=== PATIENT | female | born 1940 | race Caucasian/White ===

== ENCOUNTER 2016-08-26 08:53 | Day surgery (SDC) | payer MEDICARE, BC ==
[~2016-08-26 08:53] MED LIST: Lactated Ringers 1,000 ML IV SCH; Sodium Chloride 0.9% 10 ML Syringe FLUSH PRN
[2016-08-26] MEDS ORDERED: Propofol 200 MG/20 ML SDV ONE ×2 (09:55→09:56)
[2016-08-26] MEDS ORDERED: Midazolam 1 MG/ML 2 ML SDV ONE ×2 (09:55→09:56)
--- NOTE | 2016-08-26 10:00 | PCM.PN ---
- General Info Date of Service: 08/26/16 - Review of Systems Systems Review Comment:: 76-year-old female referred by Mita Michaels for colonoscopy. This patient has been having a change in bowel habits with some diarrhea. Her last colonoscopy was almost 10 years ago. She is medically stable to proceed today with no significant recent change in her health status. Her recent history and physical is reviewed and no changes are noted. I discussed the proposed colonoscopy with the patient. Risks such as but not limited to bleeding and GI injury or discussed. She appears to understand and agrees to proceed. - Patient Data Vitals - most recent: Last Vital Signs Temp 97.5 F 08/26/16 09:35 Pulse 57 L 08/26/16 09:35 Resp 16 08/26/16 09:35 BP 122/52 L 08/26/16 09:35 Pulse Ox 100 08/26/16 09:35 Weight - most recent: 83.915 kg Med Orders - Current: Current Medications Lactated Ringer's (Ringers, Lactated) 1,000 mls @ 125 mls/hr IV ASDIRECTED LESLIE Last Admin: 08/26/16 09:55 Dose: 125 mls/hr Sodium Chloride (Saline Flush) 10 ml FLUSH ASDIRECTED PRN PRN Reason: Keep Vein Open - Problem List Review Problem List Initiated/Reviewed/Updated: Yes - Assessment Assessment:: Change in Bowel Habits - Plan Plan:: Colonoscopy
--- NOTE | 2016-08-26 10:35 | PCM.OPNOTE ---
- General Post-Op/Procedure Note Date of Surgery/Procedure: 08/26/16 Operative Procedure(s): Colonoscopy with Biopsy Findings: Moderate Sigmoid Diverticulosis Moderate Anal Stenosis Pre Op Diagnosis: Change in Bowel Habits Post-Op Diagnosis: Diverticulosis Anesthesia Technique: MAC Primary Surgeon: Justus Jay Pathology: Random biopsies of Colon Output, Urine Amount: 0 EBL in mLs: 2 Complications: None Condition: Good
--- NOTE | 2016-08-26 11:41 | OR ---
Date of Procedure: 08/26/2016 PREOPERATIVE DIAGNOSIS: Change in bowel habits. POSTOPERATIVE DIAGNOSIS: Diverticulosis. OPERATION PERFORMED: Colonoscopy with biopsy. INDICATIONS FOR SURGERY: This is a 76-year-old female, who has noted a change in her bowel pattern recently with increased loose and diarrhea stools. It has been several years since her last colonoscopy and she is referred for this exam. FINDINGS: The patient has a moderate degree of sigmoid diverticulosis. This does not appear to be acutely inflamed or otherwise complicated. The remainder of the colon mucosa appears normal. The patient does have a [id number] anal stenosis, but no mass or other lesion was noted in this area. PROCEDURE: The patient was taken to the operating room. She was given intravenous sedation and with her in the left lateral decubitus position, digital rectal exam was performed showing no rectal masses. This was somewhat limited because of moderate degree of stenosis of the anal canal. The Olympus colonoscope was inserted into the rectum. Retroflexed examination of the rectal canal was performed. The scope was then carefully advanced under direct visualization through the entire length of the colon until the cecum was reached. Cecal acquisition was confirmed by noting the normal internal cecal anatomy including the appendiceal orifice and ileocecal valve. The light was also noted to transilluminate the abdominal wall and the right lower quadrant. After examining the cecum, the scope was slowly withdrawn, sequentially re- examining the colonic segments. During withdrawal of the scope, random biopsies were taken of the right and left colon to evaluate for possible microcytic colitis. After the exam had been completed and with no sign of any complication, the scope was removed and the patient was taken from the operating room in satisfactory condition. ESTIMATED BLOOD LOSS: 2 mL. COMPLICATIONS: None. PROGNOSIS: Good. JESSICA Jay MD /[id number]
[2016-08-26 13:37] VITALS: BP 102/56
== END 2016-08-26 11:50 | disposition home or self-care (01) ==
LOC: LL.SDS 08:53
PROVIDERS: ATTEND Surgery
DX: K63.89 Other specified diseases of intestine (principal); K62.4 Stenosis of anus and rectum; Z88.1 Allergy status to other antibiotic agents; Z88.8 Allergy status to other drugs, medicaments and biological substances; I10 Essential (primary) hypertension; E11.9 Type 2 diabetes mellitus without complications; E78.5 Hyperlipidemia, unspecified; F41.9 Anxiety disorder, unspecified; Z96.653 Presence of artificial knee joint, bilateral; Z79.82 Long term (current) use of aspirin; Z79.899 Other long term (current) drug therapy
CPT/HCPCS: 00810; 45380; J2250; J2704; J7050; J7120; 88305

== ENCOUNTER 2018-10-21 18:42 | Emergency (ER) | payer MEDICARE, BC ==
[2018-10-21 19:00] VITALS: BP 153/74; PULSE 72
[2018-10-21 19:49] LABS: CHLORIDE,CL 101 mmol/L (98-107); SODIUM,NA 138 mmol/L (136-145)
--- NOTE | 2018-10-21 20:19 | EDM.PDOC ---
ED HPI GENERAL MEDICAL PROBLEM - General Chief Complaint: Upper Extremity Injury/Pain Stated Complaint: Left Shoulder Time Seen by Provider: 10/21/18 18:55 Source of Information: Reports: Patient, Family History Limitations: Reports: No Limitations - History of Present Illness INITIAL COMMENTS - FREE TEXT/NARRATIVE: Recent is a 78 who is seen with one week history of left shoulder pain and neck pain she says that she saw a chiropractor twice last week and now she has some left shoulder pain and weakness and neck pain radiating to the shoulder patient has history of arthritis Onset: Gradual Duration: Day(s):, Getting Worse Location: Reports: Neck, Upper Extremity, Left Quality: Reports: Ache, Throbbing Severity: Moderate Improves with: Reports: Rest, Other (Massage) Context: Reports: Activity, Lifting Associated Symptoms: Reports: No Other Symptoms 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 Left Shoulder Pain Score (Numeric/FACES): 10 - Related Data Allergies Allergy/AdvReac Type Severity Reaction Status Date / Time ciprofloxacin [From Cipro] Allergy STOMACH Verified 10/21/18 18:53 AND LEG PAIN demeclocycline Allergy UNKNOWN Verified 10/21/18 18:53 diclofenac Allergy UNKNOWN Verified 10/21/18 18:53 etodolac [From Lodine] Allergy Hypertensio Verified 10/21/18 18:53 n ibuprofen [From Advil] Allergy Drowsiness Verified 10/21/18 18:53 indomethacin [From Indocin] Allergy Hypertensio Verified 10/21/18 18:53 n indomethacin sodium Allergy Hypertensio Verified 10/21/18 18:53 [From Indocin] n metronidazole Allergy Abdominal Verified 10/21/18 18:53 Pain moxifloxacin [From Avelox] Allergy UNKNOWN Verified 10/21/18 18:53 naproxen sodium [From Aleve] Allergy Abdominal Verified 10/21/18 18:53 Pain omeprazole [From Prilosec] Allergy Tachycardia Verified 10/21/18 18:53 raloxifene [From Evista] Allergy Joint Pain Verified 10/21/18 18:53 tramadol [From Ultracet] Allergy Itching Verified 10/21/18 18:53 nabumetone [From Relafen] AdvReac Insomnia Verified 10/21/18 18:53 Home Meds: Home Meds ALPRAZolam [Xanax] 1 tab PO BEDTIME 08/30/14 [History] Ascorbate Calcium [Vitamin C] 500 mg PO ACBREAKFAST 08/30/14 [History] Ascorbic Acid [Vitamin C] 1,000 mg PO DAILY@1200 08/30/14 [History] Aspirin [Lite Coat Aspirin] 325 mg PO QPM 08/30/14 [History] Hydrochlorothiazide/Lisinopril [Lisinopril/HCTZ 20-12.5 MG] 0.5 tab PO BID 08/30 [History] Hydrocortisone 1 tab PO DAILY PRN 08/30/14 [History] Krill Oil 500 mg PO DAILY 08/30/14 [History] Magnesium 400 mg PO BID 08/30/14 [History] Metoprolol Tartrate [Lopressor] 150 mg PO BID 08/30/14 [History] Vitamin B Complex 1 each PO DAILY 08/30/14 [History] metFORMIN [Glucophage XR] 500 tab PO BID 08/30/14 [History] traMADol [Ultram] 50 mg PO BEDTIME 08/30/14 [History] Acetaminophen [Tylenol Arthritis] 650 mg PO BID PRN 08/25/16 [History] Clotrimazole/Betamethasone Dip [Lotrisone Cream] 1 applic TOP ASDIRECTED PRN 10/04 [History] Gabapentin 300 mg PO BID 08/25/16 [History] Non-Formulary Medication [NF Drug] 2 tab PO DAILY 08/25/16 [History] Triamcinolone Acetonide 1 applic TOP ASDIRECTED PRN 08/25/16 [History] Ubidecarenone [Co Q-10] 200 mg PO DAILY 08/25/16 [History] Lecithin [Gram-O-Leci] 1,000 mg PO DAILY 08/26/16 [History] Lutein 20 mg PO DAILY 08/26/16 [History] Non-Formulary Medication [NF Drug] 720 mg PO DAILY 08/26/16 [History] Multivitamins [Tab-A-Rupinder] 1 tab PO DAILY 10/21/18 [History] Past Medical History Other HEENT History: Enviromental allergies Cardiovascular History: Reports: High Cholesterol, Hypertension Gastrointestinal History: Reports: Diverticulosis, Other (See Below) Other Gastrointestinal History: Hx of diverticulitis Musculoskeletal History: Reports: Fibromyalgia, RA Other Musculoskeletal History: DISH, chronic pain Psychiatric History: Reports: Anxiety Endocrine/Metabolic History: Reports: Diabetes, Type II, Other (See Below) Other Endocrine/Metabolic History: Advanced erosive osteoarthritis, degenerative joint disease - Past Surgical History Musculoskeletal Surgical History: Reports: Joint Replacement, Other (See Below) Other Musculoskeletal Surgeries/Procedures:: Bilateral knee replacement Social & Family History - Tobacco Use Smoking Status *Q: Never Smoker - Living Situation & Occupation Living situation: Reports: , with Family Occupation: Other Review of Systems - Review of Systems Review Of Systems: See Below Constitutional: Reports: No Symptoms Eyes: Reports: No Symptoms Ears: Reports: No Symptoms Nose: Reports: No Symptoms Mouth/Throat: Reports: No Symptoms Respiratory: Reports: No Symptoms Cardiovascular: Reports: No Symptoms GI/Abdominal: Reports: No Symptoms Musculoskeletal: Reports: Neck Pain, Joint Pain Skin: Reports: No Symptoms Neurological: Reports: Other (Left shoulder weakness) Psychiatric: Reports: No Symptoms ED EXAM, GENERAL - Physical Exam Exam: See Below Exam Limited By: No Limitations General Appearance: Alert, WD/WN, Anxious Ears: Normal External Exam, Normal Canal, Hearing Grossly Normal, Normal TMs Ear Exam: Bilateral Ear: Auricle Normal, Canal Normal, TM normal Nose: Normal Inspection Throat/Mouth: Normal Inspection, Normal Lips, Normal Teeth, Normal Gums, Normal Oropharynx, Normal Voice, No Airway Compromise Head: Atraumatic, Normocephalic Neck: Supple, Limited Range of Motion, Tender Midline Respiratory/Chest: No Respiratory Distress, Lungs Clear, Normal Breath Sounds, No Accessory Muscle Use, Chest Non-Tender Cardiovascular: Normal Peripheral Pulses, Regular Rate, Rhythm, No Edema, No Gallop, No JVD, No Murmur, No Rub GI/Abdominal: Normal Bowel Sounds, Soft, Non-Tender, No Organomegaly, No Distention, No Abnormal Bruit, No Mass Back Exam: Normal Inspection, Full Range of Motion, NT Extremities: Joint Swelling, Limited Range of Motion Neurological: Alert, Oriented, CN II-XII Intact, Normal Cognition, Normal Gait, Normal Reflexes, No Motor/Sensory Deficits Psychiatric: Normal Affect, Normal Mood Skin Exam: Warm, Dry, Intact, Normal Color, No Rash Course - Vital Signs Last Recorded V/S: Last Vital Signs Temp 98.1 F 10/21/18 18:59 Pulse 72 10/21/18 18:59 Resp 18 10/21/18 18:59 BP 153/74 H 10/21/18 18:59 Pulse Ox 98 10/21/18 18:59 - Orders/Labs/Meds Orders: Active Orders 24 hr Category Date Time Status EKG Documentation Completion [RC] ASDIRECTED Care 10/21/18 19:11 Active Cervical Spine Min 4V [CR] Stat Exams 10/21/18 19:12 Taken Shoulder Comp Lt [CR] Stat Exams 10/21/18 19:13 Taken Labs: Laboratory Tests 10/21/18 10/21/18 Range/Units 19:23 19:23 WBC 5.8 (4.0-10.2) K/uL RBC 4.74 (3.77-5.09) M/uL Hgb 15.0 (11.7-15.5) g/dL Hct 43.8 (34.0-46.0) % MCV 92.4 (84.0-98.0) fL MCH 31.6 (28.2-33.3) pg MCHC 34.2 (31.7-36.0) g/dL RDW 13.8 (11.2-14.1) % Plt Count 187 (150-350) K/uL Neut % (Auto) 54.4 (45.0-80.0) % Lymph % (Auto) 33.1 (10.0-50.0) % Griggs % (Auto) 9.4 (2.0-14.0) % Eos % (Auto) 2.4 (0.0-5.0) % Baso % (Auto) 0.7 (0.0-2.0) % Neut # (Auto) 3.17 (1.40-7.00) K/uL Lymph # (Auto) 1.93 (0.50-3.50) K/uL Griggs # (Auto) 0.55 (0.00-1.00) K/uL Eos # (Auto) 0.14 (0.00-0.50) K/uL Baso # (Auto) 0.04 (0.00-0.20) K/uL Sodium 138 (136-145) mmol/L Potassium 4.1 (3.5-5.1) mmol/L Chloride 101 (98-107) mmol/L Carbon Dioxide 32.0 (21.0-32.0) mmol/L BUN 26 H (7-18) mg/dL Creatinine 0.81 (0.51-1.17) mg/dL Est Cr Clr Drug Dosing 41.78 mL/min Estimated GFR (MDRD) > 60 mL/min Glucose 219 H (74-106) mg/dL Calcium 9.3 (8.5-10.1) mg/dL Total Bilirubin 0.5 (0.2-1.0) mg/dL AST 26 (15-37) U/L ALT 33 (12-78) U/L Alkaline Phosphatase 75 (46-116) IU/L Troponin I 0.000 (0.000-0.056) ng/mL Total Protein 7.1 (6.4-8.2) g/dL Albumin 3.3 L (3.4-5.0) g/dL Departure - Departure Time of Disposition: 20:27 Disposition: Home, Self-Care 01 Condition: Fair Clinical Impression: Arthritis, Osteoarthritis - Discharge Information *PRESCRIPTION DRUG MONITORING PROGRAM REVIEWED*: No *COPY OF PRESCRIPTION DRUG MONITORING REPORT IN PATIENT MELCHOR: No Referrals: Mita Michaels PA [Primary Care Provider] - Care Plan Goals: Patient came in with left shoulder pain at this time we went ahead and started cardiac workup patient states that she's had the pain for about a week and her heart is she's not had any chest increase or decrease in her chest pain this is mostly her left arm at this time we did an EKG which showed normal sinus rhythm her x-rays of the shoulder and neck were done which reveal significant osteoarthritis at this time her troponins were negative we went ahead and examined her everything checked out x-ray showed significant arthritis left shoulder and osteoarthritis of the neck we will go ahead and start her on prednisone for short time to see if she gets any relief will start on 10 mg 1 tablet a day for 5 days then 1. Half a 2.5 mg for the another 5 days medications will be sent with her. At this time since this was not cardiac chest per se normal aspirins were given due to the possibilities of adverse effects with the prednisone and negative workup for cardiac disease. - My Orders Last 24 Hours: My Active Orders 10/21/18 19:11 EKG Documentation Completion [RC] ASDIRECTED 10/21/18 19:12 Cervical Spine Min 4V [CR] Stat 10/21/18 19:13 Shoulder Comp Lt [CR] Stat - Assessment/Plan Last 24 Hours: My Active Orders 10/21/18 19:11 EKG Documentation Completion [RC] ASDIRECTED 10/21/18 19:12 Cervical Spine Min 4V [CR] Stat 10/21/18 19:13 Shoulder Comp Lt [CR] Stat
== END 2018-10-21 20:50 | disposition home or self-care (01) ==
LOC: LL.ED 18:42
DX: M19.012 Primary osteoarthritis, left shoulder (principal); M47.812 Spondylosis without myelopathy or radiculopathy, cervical region; E78.00 Pure hypercholesterolemia, unspecified; I10 Essential (primary) hypertension; E11.9 Type 2 diabetes mellitus without complications; Z88.1 Allergy status to other antibiotic agents; Z88.6 Allergy status to analgesic agent; Z88.8 Allergy status to other drugs, medicaments and biological substances; Z88.5 Allergy status to narcotic agent; Z79.82 Long term (current) use of aspirin; Z79.899 Other long term (current) drug therapy; Z79.84 Long term (current) use of oral hypoglycemic drugs
CPT/HCPCS: 36415; 72050; 73030-LT; 80053; 84484; 85025; 93005; 99283; 99284-25